=== PATIENT | male | born 1960 | race Caucasian/White ===

== ENCOUNTER 2018-09-03 10:40 | Emergency (ER) | payer OTHER ==
[2018-09-03 10:55] VITALS: TEMP 98; BMI 24.4
[2018-09-03] MEDS ORDERED: KETOROLAC TROMETHAMINE 30 MG/1 ML VIAL IVPUSH ONE (11:56)
[2018-09-03] MEDS ORDERED: ONDANSETRON 4 MG/2 ML VIAL IVPUSH ONE (11:56)
[2018-09-03] MEDS ORDERED: SODIUM CHLORIDE 1,000 ML IV STA (11:57)
[2018-09-03] MEDS ORDERED: ONDANSETRON 4 MG/2 ML VIAL ONE (11:59)
[2018-09-03] MEDS ORDERED: KETOROLAC TROMETHAMINE 30 MG/1 ML VIAL ONE (11:59)
[2018-09-03 12:00] LABS: EPI CELLS 0.6 /HPF (0-5); URINE APPEARANCE CLEAR; URINE BACTERIA 0.7 /hpf (NEGATIVE); URINE BILIRUBIN NEGATIVE (NEGATIVE); URINE CASTS 1 /hpf (0-8); URINE COLOR YELLOW; URINE GLUCOSE (UA) NEGATIVE (NEGATIVE); URINE KETONE TRACE (NEGATIVE); URINE LEUK ESTERASE NEGATIVE (NEGATIVE); URINE NITRITE NEGATIVE (NEGATIVE); URINE PROTEIN NEGATIVE (NEGATIVE); URINE RBC 503 /hpf (0-4); URINE WBC 3 /hpf (0-5)
--- NOTE | 2018-09-03 12:01 | PDOC ---
History of Present Illness - General Chief Complaint: Pain, Acute Stated Complaint: SENT BY PCP Time Seen by Provider: 09/03/18 11:24 History Source: Patient - History of Present Illness Timing/Duration: reports: constant Quality: reports: severe Abdominal Pain Onset Location: reports: flank Past History - Past Medical History Allergies/Adverse Reactions: Allergies Allergy/AdvReac Type Severity Reaction Status Date / Time No Known Allergies Allergy Verified 09/03/18 10:53 Home Medications: Ambulatory Orders Ibuprofen [Motrin -] 2 tab PO Q6H #30 tablet 09/03/18 Ondansetron HCl [Zofran] 4 mg PO Q8H #15 tablet 09/03/18 Oxycodone HCl/Acetaminophen [Percocet 5/325 -] 1 tab PO Q4H #20 tablet MDD 6 doses 09/03/18 Tamsulosin HCl [Flomax] 0.4 mg PO DAILY #7 capsule 09/03/18 Tramadol HCl 50 mg PO Q6H #15 tablet MDD 200 mg 09/03/18 COPD: No Kidney Stones: Yes - Suicide/Smoking/Psychosocial Hx Smoking History: Never smoked Review of Systems - Review of Systems Constitutional: No: Chills, Fever ABD/GI: Yes: Nausea. No: Blood Streaked Bowels, Constipated, Diarrhea, Rectal Bleeding, Vomiting, Abdominal cramping, Tarry Stools : Yes: Flank Pain. No: Dysuria, Discharge, Hematuria *Physical Exam - Vital Signs Last Vital Signs Temp Pulse Resp BP Pulse Ox 98 F 95 H 20 185/120 H 98 09/03/18 10:54 09/03/18 11:15 09/03/18 10:54 09/03/18 11:15 09/03/18 10:54 - Physical Exam General Appearance: Yes: Appropriately Dressed, Moderate Distress HEENT: positive: Normal Voice Neck: positive: Supple Respiratory/Chest: positive: Lungs Clear, Normal Breath Sounds. negative: Respiratory Distress Cardiovascular: positive: Regular Rate, S1, S2 Gastrointestinal/Abdominal: positive: Normal Bowel Sounds, Flat, Soft. negative : Tender, Pulsatile Mass, Distended, Guarding, Rebound Musculoskeletal: negative: CVA Tenderness Integumentary: positive: Dry, Warm Neurologic: positive: Fully Oriented, Alert, Normal Mood/Affect ED Treatment Course - LABORATORY CBC & Chemistry Diagram: 09/03/18 13:28 09/03/18 13:28 - RADIOLOGY Radiology Studies Ordered: Category Date Time Status ABDOMEN & PELVIS CT W/O CONTR [CT] Stat CT Scan 09/03/18 11:56 Ordered Medical Decision Making - Medical Decision Making 09/03/18 11:58 57-year-old male, history of renal stones, no surgeries, here with L flank pain with nausea this a.m. No dysuria, hematuria. States current symptoms feel like his kidney stones. Denies penile discharge, testicular pain or swelling see exam R/o renal colic [place] uncomfortable and sig hypertensive, m/l due to pain, less likely dissection -pain control -labs -CT -reassess 09/03/18 13:48 CT read as 3 mm L UVJ stone with mild to moderate hydro. Also seen is a 7 mm stone in the R mid ureter with mild hydro with moderate atrophic right kidney. Enlarged prostate always also seen. Pt informed of findings. Of note, labs unremarkable w/ no e/o infection on UA. Will continue to manage sxs 09/03/18 16:00 Patient reports feeling significantly better after meds and stable for discharge to follow-up with this week *DC/Admit/Observation/Transfer Diagnosis at time of Disposition: Renal colic - Discharge Dispostion Disposition: HOME Condition at time of disposition: Improved - Prescriptions Prescriptions: Ibuprofen [Motrin -] 2 tab PO Q6H #30 tablet Ondansetron HCl [Zofran] 4 mg PO Q8H #15 tablet Oxycodone HCl/Acetaminophen [Percocet 5/325 -] 1 tab PO Q4H #20 tablet MDD 6 doses Tamsulosin HCl [Flomax] 0.4 mg PO DAILY #7 capsule Tramadol HCl 50 mg PO Q6H #15 tablet MDD 200 mg - Referrals Referrals: Jeremiah Cuevas MD [Primary Care Provider] - Tong Vázquez MD [Staff Physician] - - Patient Instructions Printed Discharge Instructions: Kidney Stones -- Adult Additional Instructions: Your CAT scan shows that you have a 3 mm stone on the left side which is near the bladder and should pass on its own in the next several days. Also seen was a 7 mm stone in the mid aspect of your right kidney tube. Take motrin for pain when pain is not severe, take percent when pain is severe. DO NOT fill tramadol. Take zofran for nausea as needed. Take flomax as directed. Drink plenty of fluids. Return to the ER as needed. Otherwise, please follow-up with Dr. TIESHA Salazar this week - Post Discharge Activity
[2018-09-03 13:36] LABS: HEMATOCRIT 43.2 % (35.4-49); HEMOGLOBIN 14.6 GM/dL (11.7-16.9); LYMPH % 4.3 % (8-40); MCH 31.4 pg (25.7-33.7); MCHC 33.9 g/dl (32.0-35.9); MEAN CELL VOLUME 92.6 fl (80-96); MEAN PLT VOLUME 8.1 fl (7.5-11.1); MONO % 2.3 % (3.8-10.2); NEUT % 93.4 % (42.8-82.8); PLATELET COUNT 207 K/MM3 (134-434); RBC 4.66 M/mm3 (4.00-5.60); RDW 12.8 % (11.9-15.9); WHITE BLOOD COUNT 12.5 K/mm3 (4.0-10.0)
[2018-09-03] MEDS ORDERED: TAMSULOSIN HCL 0.4 MG CAP PO ONE (13:47)
[2018-09-03 14:04] LABS: ALBUMIN 4.1 g/dl (3.4-5.0); ALK PHOS 70 U/L (45-117); ANION GAP 4 MMOL/L (8-16); BILIRUBIN,TOTAL 1.2 mg/dL (0.2-1); BLOOD UREA NITROGEN 17 mg/dL (7-18); CALCIUM 8.5 mg/dL (8.5-10.1); CHLORIDE 104 mmol/L (98-107); CO2 30 mmol/L (21-32); CREATININE 1.4 mg/dL (0.55-1.3); GLUCOSE,RANDOM 143 mg/dL (74-106); POTASSIUM 4.5 mmol/L (3.5-5.1); SGOT/AST 21 U/L (15-37); SGPT/ALT 29 U/L (13-61); SODIUM 138 mmol/L (136-145); TOT PROT 7.1 g/dl (6.4-8.2)
[2018-09-03] MEDS ORDERED: TAMSULOSIN HCL 0.4 MG CAP ONE (14:15)
[2018-09-03] MEDS ORDERED: traMADol HCL 50 MG TABLET PO ONE (14:18)
[2018-09-03] MEDS ORDERED: traMADol HCL 50 MG TABLET ONE (14:19)
[2018-09-03 14:26] VITALS: BP 163/99; PULSE 85
[2018-09-03 14:52] LABS: ANISOCYTOSIS 0; MACROCYTOSIS 1+; OVALOCYTE 1+; PLATELET ESTIMATE NORMAL
[2018-09-03] MEDS ORDERED: morphine CARPU-JECT 4 MG/1 ML DISP.SYRIN IM ONE (15:11)
[2018-09-03] MEDS ORDERED: morphine SULFATE 4 MG/ML VIAL ONE (15:21)
== END 2018-09-03 16:04 | disposition home or self-care (01) ==
LOC: JER 10:40
PROC: 3E0333Z Introduction of Anti-inflammatory into Peripheral Vein, Percutaneous Approach (ICD-10-PCS; principal; 2018-09-03)
PROC: 3E033GC Introduction of Other Therapeutic Substance into Peripheral Vein, Percutaneous Approach (ICD-10-PCS; 2018-09-03)
DX: N13.2 Hydronephrosis with renal and ureteral calculous obstruction (principal); N40.0 Benign prostatic hyperplasia without lower urinary tract symptoms
CPT/HCPCS: 36415; 74176-TC; 80053; 81003; 85025; 87086; 96372; 96374; 96375; 99282-25; J7030

== ENCOUNTER 2018-10-29 10:25 | Day surgery (SDC) | payer OTHER | END 2018-10-29 15:30 | disposition home or self-care (01) | LOC: JASU-SURG 10:25 ==